=== PATIENT | female | born 1955 | race Caucasian/White ===

== ENCOUNTER 2017-04-11 20:06 | Emergency (ER) | payer BC ==
[~2017-04-11] VITALS: Ht 160 cm; Wt 99.8 kg
[2017-04-11 20:11] VITALS: BP 133/86
--- NOTE | 2017-04-11 20:11 | Emergency Room Report ---
History of Present Illness General Chief Complaint: Abdominal Pain Source: Patient, EMS Present Illness HPI Is a 61-year-old female with history hypertension. She presents with acute onset of abdominal pain with vomiting and diarrhea. Occurred about 4 hours ago. Vomiting is nonbloody nonbilious. Copious amount. Diarrhea is watery. No sick contact. She is visiting from [place]. Pain is crampy and sharp in nature. 05/30. Allergies: Coded Allergies: ACETAMINOPHEN (Verified Allergy, Unknown, 04/11/17) ASPIRIN (Verified Allergy, Unknown, 04/11/17) CODEINE (Verified Allergy, Unknown, 04/11/17) OXYCODONE (Verified Allergy, Unknown, 04/11/17) Patient History Past Medical History: see triage record, old chart reviewed, HTN Past Surgical History: other Pertinent Family History: none Social History: Denies: smoking Now: No Immunizations: other Reviewed Nursing Documentation: PMH: Agreed, PSxH: Agreed Nursing Documentation-PMH Hx Hypertension: Yes Hx Diabetes: Yes History Of Psychiatric Problem: Yes - depression Review of Systems Eye: Denies: blurred vision, eye pain ENT: Denies: ear pain, nose congestion, throat swelling Respiratory: Denies: cough, shortness of breath Cardiovascular: Denies: chest pain, palpitations Gastrointestinal: Reports: abdominal pain, diarrhea, nausea, vomiting Musculoskeletal: Denies: back pain, joint pain Skin: Denies: rash Neurological: Denies: headache, numbness Endocrine: Denies: increased thirst, increased urine Hematologic/Lymphatic: Denies: easy bruising All Other Systems: negative except mentioned in HPI Physical Exam Vital Signs Date Time Temp Pulse Resp B/P Pulse Ox O2 Delivery O2 Flow Rate FiO2 04/11/17 19:57 97.3 66 26 99/74 100 Room Air vitals unremarkable Sp02 EP Interpretation: reviewed, normal General Appearance: well appearing, alert, mild distress - From pain, obese Head: normocephalic, atraumatic Eyes: bilateral eye EOMI, bilateral eye PERRL ENT: hearing grossly normal, normal pharynx Neck: full range of motion, supple, no meningismus Respiratory: chest non-tender, lungs clear, normal breath sounds Cardiovascular #1: regular rate, rhythm, no murmur Gastrointestinal: non tender, no mass, no organomegaly, no bruit, non-distended , decreased bowel sounds Musculoskeletal: back normal, gait/station normal, normal range of motion Psychiatric: mood/affect normal Skin: warm/dry Medical Decision Making Diagnostic Impression: Primary Impression: Bacterial enterocolitis Additional Impression: Abdominal pain Qualified Codes: R10.84 - Generalized abdominal pain ER Course She presents abdominal pain with vomiting and diarrhea. She has enterocolitis. Most likely viral but could also be bacteria. She is much better now. No longer vomiting or diarrhea. We'll discharge home. Lab Results Impression labs with leukocytosis CT/MRI/US Diagnostic Results CT/MRI/US Diagnostic Results : Imaging Test Ordered: CT abdomen and pelvis Impression Read by radiologist. Mild distention of fluid-filled small bowel and colonic loops, suggesting enterocolitis. No evidence of obstruction. Last Vital Signs Date Time Temp Pulse Resp B/P Pulse Ox O2 Delivery O2 Flow Rate FiO2 04/11/17 19:57 97.3 66 26 99/74 100 Room Air Status: improved Disposition: HOME, SELF-CARE Condition: Stable Scripts Hydrocodone/Acetaminophen 5-325* (HYDROCODONE/ACETAMINOPHEN 5-325*) 1 Each Tablet 1 TAB ORAL Q6H Y for For Pain, #15 TAB 0 Refills Prov: CAROLANN LOONEY M.D. 04/11/17 Ciprofloxacin Hcl* (CIPROFLOXACIN HCL*) 500 Mg Tablet 500 MG ORAL Q12H, #14 TAB 0 Refills Prov: CAROLANN LOONEY M.D. 04/11/17 Additional Instructions: Followup with your DrMontserrat in 2-3 days. Return if worse. CAROLANN LOONEY M.D. Apr 11, 2017 20:11
[2017-04-11] MEDS ORDERED: Morphine Sulfate 4mg/ml Inj IVP ONE (20:15)
[2017-04-11] MEDS ORDERED: DESMOPRESS10 MCG/0.4 NS (20:29)
[2017-04-11] MEDS ORDERED: LEXAPRO10 MG ORAL (20:29)
[2017-04-11] MEDS ORDERED: BUPROPION XL300 MG ORAL (20:29)
[2017-04-11 20:39] LABS: ALBUMIN/GLOBULIN RATIO 1.6 (1.0-2.7); CALCIUM 10.4 mg/dL (8.6-10.2); CREATININE 1.4 mg/dL (0.5-0.9); MEAN CORPUSCULAR HGB CONC 33.8 G/DL (32.0-36.0); MEAN CORPUSCULAR VOLUME 92 FL (80-99); MEAN PLATELET VOLUME 7.7 FL (6.5-10.1); PLATELET COUNT 252 K/UL (150-450); POTASSIUM 3.8 mEQ/L (3.4-4.9); RED BLOOD COUNT 5.57 M/UL (4.20-5.40); RED CELL DISTRIBUTION WIDTH 12.4 % (11.6-14.8); TOTAL PROTEIN 7.9 g/dL (6.6-8.7); WHITE BLOOD COUNT 15.1 K/UL (4.8-10.8)
[2017-04-11 21:04] LABS: NEUTROPHILS % (MANUAL) 85 % (45-75); TOTAL CELLS COUNTED 100
[2017-04-11 21:05] LABS: BAND NEUTROPHILS % (MANUAL) 0 % (0-8); BASOPHILS % (MANUAL) 0 % (0-2); EOSINOPHILS % (MANUAL) 2 % (0-3); LYMPHOCYTES % (MANUAL) 8 % (20-45); PLATELET ESTIMATE ADEQUATE; PLATELET MORPHOLOGY NORMAL
[2017-04-11 21:15] VITALS: BP 129/71
[2017-04-11] MEDS ORDERED: HYDROCODON-ACE1 EA15 ORAL (22:26)
[2017-04-11] MEDS ORDERED: CIPROFLOXACIN500 M2 ORAL (22:26)
[2017-04-11 22:43] VITALS: BP 114/68
[2017-04-11 22:44] VITALS: BP 129/71
--- NOTE | 2017-04-12 12:15 | Diagnostic Imaging Report ---
Indication: ABD PAIN abdominal pain with diarrhea, vomiting since 4 PM Technique: Spiral acquisitions obtained through the abdomen and pelvis. No oral contrast utilized, per emergency room physician request No IV contrast utilized, per referring physician request.. Multiplanar reconstructions were generated. Total dose length product 990 mGycm. CTDIvol(s) 18 mGy. Dose reduction achieved using automated exposure control Comparison: None Findings: The colon is diffusely fluid-filled, especially distally. The appendix is not definitely identified, but there are no findings to suggest acute appendicitis. Small bowel loops are fluid-filled, nondistended. No free or loculated intraperitoneal air or fluid is evident. There is a small sliding-type hiatal hernia. The stomach is otherwise unremarkable. The duodenum is unremarkable. No evidence of diverticulosis or diverticulitis Lack of IV contrast limits assessment of the solid organs. The liver, gallbladder, bile ducts, pancreas, spleen, adrenals, kidneys are unremarkable. Left iliac chain and retroperitoneal nodes are mildly prominent but not frankly enlarged. There is a midline surgical scar. No pelvic mass or adenopathy. Uterus is not visualized, presumed surgically absent. Lung bases are clear except for a small pleural nodule along the inferior left major fissure.. Impression: Fluid-filled small and large bowel, consistent with stated clinical history of diarrhea, probably indicating enterocolitis No other acute abnormality Mild nonspecific prominent left iliac chain and retroperitoneal lymph nodes Evidence of prior hysterectomy Small pleural nodule in the left lung base, presumably post inflammatory Small hiatal hernia This agrees with the preliminary interpretation provided overnight by [facility] service. The CT scanner at [facility] is accredited by the [employer] and the scans are performed using protocols designed to limit radiation exposure to as low as reasonably achievable to attain images of sufficient resolution adequate for diagnostic evaluation.
== END 2017-04-11 23:00 | disposition home or self-care (01) ==
LOC: EDBD 20:06 → EMR 20:28
DX: K52.9 Noninfective gastroenteritis and colitis, unspecified (principal); R10.84 Generalized abdominal pain; F32.9 Major depressive disorder, single episode, unspecified; E11.9 Type 2 diabetes mellitus without complications; I10 Essential (primary) hypertension; Z88.6 Allergy status to analgesic agent
CPT/HCPCS: 36415; 74176; 80053; 83690; 85007; 85025; 96360; 96361; 96374; 96375; 99284; J2270; J2405